=== PATIENT | female | born 1970 | race Caucasian/White ===

== ENCOUNTER 2018-06-20 11:09 | Day surgery (SDC) | payer BC, OTHER ==
[~2018-06-20 11:09] MED LIST: Lactated Ringers 1,000 ML IV SCH
--- NOTE | 2018-06-20 12:07 | PCM.PREANE ---
Preanesthetic Assessment - Anesthesia/Transfusion/Family Hx Anesthesia History: Prior Anesthesia Without Reaction Other Type of Anesthesia Reaction Comment: Denies any problems w/ past anesthesia, "Motion sickness", No family prblms Family History of Anesthesia Reaction: No Transfusion History: No Prior Transfusion(s) Intubation History: Unknown - Review of Systems General: No Symptoms Pulmonary: No Symptoms Cardiovascular: No Symptoms Gastrointestinal: Other (severe acid reflux) Neurological: No Symptoms Other: Reports: None - Physical Assessment O2 Sat by Pulse Oximetry: 97 Respiratory Rate: 16 Vital Signs: Last Vital Signs Temp 36.7 C 06/20/18 11:20 Pulse 68 06/20/18 11:20 Resp 16 06/20/18 11:20 BP 130/85 06/20/18 11:20 Pulse Ox 97 06/20/18 11:20 Height: 17.07 m Weight: 93.894 kg ASA Class: 2 Mental Status: Alert & Oriented x3 Airway Class: Mallampati = 2 Dentition: Reports: Normal Dentition, [place](s) (crown x1 upper right incisor) Thyro-Mental Finger Breadths: 3 Mouth Opening Finger Breadths: 3 ROM/Head Extension: Full Lungs: Clear to Auscultation, Normal Respiratory Effort Cardiovascular: Regular Rate - Allergies Allergies/Adverse Reactions: Allergies Allergy/AdvReac Type Severity Reaction Status Date / Time No Known Allergies Allergy Verified 06/17/18 09:16 - Blood Blood Available: No - Anesthesia Plan Pre-Op Medication Ordered: None - Acknowledgements Anesthesia Type Planned: MAC Pt an Appropriate Candidate for the Planned Anesthesia: Yes Alternatives and Risks of Anesthesia Discussed w Pt/Guardian: Yes Pt/Guardian Understands and Agrees with Anesthesia Plan: Yes PreAnesthesia Questionnaire Gastrointestinal History: Reports: GERD Genitourinary History: Reports: None [place] History: Reports: Endocrine/Metabolic History: Reports: Obesity/BMI 30+ - Past Surgical History Head Surgeries/Procedures: Reports: None GI Surgical History: Reports: Cholecystectomy, EGD Female Surgical History: Reports: Section, Hysterectomy, Oophorectomy, Tubal Ligation - SUBSTANCE USE Smoking Status *Q: Never Smoker Recreational Drug Use History: No - HOME MEDS Home Medications: Home Meds Famotidine [Pepcid AC] 1 tab.chew CHEW ASDIRECTED PRN 06/17/18 [History] - CURRENT (IN HOUSE) MEDS Current Meds: Current Medications Lactated Ringer's (Ringers, Lactated) 1,000 mls @ 125 mls/hr IV ASD[facility]RECTED [facility] Last Admin: 06/20/18 11:32 Dose: 125 mls/hr
[2018-06-20] MEDS ORDERED: Lidocaine 4% 5 ML Amp ONE (12:15)
[2018-06-20] MEDS ORDERED: Propofol 200 MG/20 ML SDV ONE ×3 (12:15→12:47)
[2018-06-20] MEDS ORDERED: fentaNYL 100 MCG/2 ML SDV ONE (12:16)
[2018-06-20] MEDS ORDERED: Midazolam 1 MG/ML 2 ML SDV ONE (12:17)
--- NOTE | 2018-06-20 13:03 | PCM.OPNOTE ---
- General Post-Op/Procedure Note Date of Surgery/Procedure: 06/20/18 Operative Procedure(s): egd w bx. colonoscopy Findings: see dict [id number] Pre Op Diagnosis: GERD and change in bowel habbits Post-Op Diagnosis: Same Anesthesia Technique: Moderate Sedation Primary Surgeon: Geovany Vitale Pathology: egd bx Complications: None Condition: Good
--- NOTE | 2018-06-20 13:03 | PCM.POSTAN ---
POST ANESTHESIA ASSESSMENT - MENTAL STATUS Mental Status: Alert - RESPIRATORY Respiratory Status: Respiratory Rate WNL - CARDIOVASCULAR CV Status: Pulse Rate WNL - GASTROINTESTINAL GI Status: No Symptoms - POST OP HYDRATION Hydration Status: Adequate & Stable
--- NOTE | 2018-06-20 13:22 | PCM48HPAN ---
Post Anesthesia Note - EVALUATION WITHIN 48HRS OF ANESTHETIC Vital Signs in Normal Range: Yes Patient Participated in Evaluation: Yes Respiratory Function Stable: Yes Airway Patent: Yes Cardiovascular Function Stable: Yes Hydration Status Stable: Yes Pain Control Satisfactory: Yes Nausea and Vomiting Control Satisfactory: Yes Mental Status Recovered: Yes Resp Rate: 19
--- NOTE | 2018-06-20 20:02 | OR ---
SURGEON: Geovany Vitale MD DATE OF PROCEDURE: 06/20/2018 PREOPERATIVE DIAGNOSES: 1. Gastroesophageal reflux disease. 2. Change in bowel habit. PROCEDURES PERFORMED: Esophagogastroduodenoscopy with biopsy and colonoscopy. PROCEDURE IN DETAIL: EGD: The patient was taken to the endoscopy room, and with the POWER CUTTING MACHINE OPERATOR, Diprivan was administered. A well-lubricated EGD scope was gently inserted through the oropharynx, down the esophagus, passing through the gastroesophageal junction, into the stomach. The mucosa was examined upon the passage. Any etiology will be noted. Once in the stomach, we continued to advance to the distal antrum, passed through the pylorus into the second portion of the duodenum. Again, the mucosa was examined for any abnormality and etiology. The scope was then retrieved back to the stomach and then retroflexed to look at the fundus of the stomach. If a biopsy was indicated, we will biopsy the antrum, body, and gastroesophageal junction. The air will be sucked out while the scope is retrieved to reduce the patient's discomfort. The patient tolerated the procedure well. There were no intraoperative complications. Dr. Vitale was present through the whole procedure. Prior to surgery, a time-out had been called, the patient identified, procedure identified and antibiotic administered. Colonoscopy procedure: The patient was taken to the endoscopy room. A time out was called, patient identified, and procedure identified. Diprivan was then administrated. Patient went from awake to sleep, hearing doctor talking or door closing is normal. Perineum inspection and digital examination were then performed. A well- lubricated colonoscope was gently inserted through the rectum, advanced past the rectosigmoid junction, the descending colon, splenic flexure, transverse colon, hepatic flexure, ascending colon, arrived to the cecum. Cecum was identified as dictated in the finding. Then the scope was carefully withdrawn while attention was paid to the mucosal surface for any abnormality. Air will be sucked out during the scope withdrawal. At the rectum, retroflexed to examine any rectal diseases, fistula or hemorrhoids. Patient tolerated procedure well. There were no intraoperative complications, and Dr. Vitale was present throughout the whole procedure. FINDINGS: EGD findings: 1. The patient is easily sedated with POWER CUTTING MACHINE OPERATOR and Diprivan. The patient is soundly snoring. 2. Oropharynx and proximal esophagus are free of disease from inflammation or stricture, and distal esophagus shows salmon-color change consistent with [id number] acid reflux and in fact, couple of areas are like erosive esophagitis at the GE junction. Stomach rugae is normal in appearance. There is no food, blood, ulcer, or bile observed. Antrum is a little bit inflamed. Duodenum was grossly normal. Scope retrieved back to the stomach. Retroflexed look at the fundus of the stomach, the patient has mild hiatal hernia. Biopsy done at antrum, body, GE junction at 40 and sucked out the gas while scope pulling out. The patient would need to address the erosive esophagitis and repeat EGD probably beneficial in 6 months. Colonoscopy findings: 1. The patient is easily sedated with POWER CUTTING MACHINE OPERATOR and Diprivan. The patient is soundly snoring. 2. Bowel prep is left to be desirable. There is some liquid stool and moderate amount of semi-formed stool and coating the mucosa. This is a compromised study. Colon is rather straight forward. Cecum indicated by ileocecal fold, one-to-one indentation, light emittance, and appendiceal orifice. Mucosa examined upon scope pulling out with constant irrigation. The patient does not have any disease. No diverticulosis, polyp, mass, growth, inflammation, stricture, ulceration, or AV malformation, none of those. The patient does have internal hemorrhoids. No external hemorrhoids. Internal hemorrhoids are moderate and have some anal tags. The patient would benefit from repeat colonoscopy in 10 years from today or if clinically indicated otherwise. ESTEFANY / ALIN /[id number]
== END 2018-06-20 13:49 | disposition home or self-care (01) ==
LOC: MW.SDS 11:09
PROVIDERS: ATTEND Surgery
DX: K21.0 Gastro-esophageal reflux disease with esophagitis (principal); R19.4 Change in bowel habit; K29.50 Unspecified chronic gastritis without bleeding; K44.9 Diaphragmatic hernia without obstruction or gangrene; K64.8 Other hemorrhoids; E66.9 Obesity, unspecified; Z79.899 Other long term (current) drug therapy
CPT/HCPCS: 43239; 45378; J2250; J2704; J3010; J7120